=== PATIENT | female | born 1955 | race Caucasian/White ===

== ENCOUNTER 2025-10-06 11:35 | Outpatient (CLI) | payer MEDICARE | END 2025-10-06 11:36 | disposition home or self-care (01) | LOC: SCSBT 11:35 | PROVIDERS: ATTEND Nurse Practitioner Family | DX: M81.0 Age-related osteoporosis without current pathological fracture (principal); M85.89 Other specified disorders of bone density and structure, multiple sites | CPT/HCPCS: 77080 ==